=== PATIENT | male | born 1970 | race Caucasian/White ===

== ENCOUNTER → 2018-08-04 14:04 | Outpatient (CLI) | payer OTHER, SELFPAY ==
--- NOTE | 2018-08-04 14:06 | DI.RAD.S_ITS ---
PROCEDURE: XR CHEST 2V INDICATIONS: chest tightness TECHNIQUE: 2 views of the chest were acquired. COMPARISON: [facility], , CHEST 1 VIEW, 08/15/2016, 12:32. FINDINGS: Surgical changes and devices: None. Lungs and pleura: No pleural effusions or pneumothorax. Lungs are clear. Mediastinum: Mediastinal contours are normal. Heart size is normal. Bones and chest wall: No suspicious bony abnormalities. Soft tissues appear unremarkable. IMPRESSION: Normal for age. Source of current symptoms is not seen. Dictated by: Kirk Nj M.D. on 08/04/2018 at 15:02 Approved by: Kirk Nj M.D. on 08/04/2018 at 15:03
[2018-08-04 16:09] LABS: D Dimer 318 ng/mL (<230)
== END ==
PROVIDERS: Visit Provider Physician Assistant
DX: R07.89 Other chest pain (principal)
CPT/HCPCS: 36415; 71046; 85379

== ENCOUNTER → 2018-10-06 09:34 | Outpatient (CLI) | payer OTHER, SELFPAY ==
--- NOTE | 2018-10-06 11:20 | PM.TREADMILL ---
Cardiac Stress Test Report Referral & Results Date Patient Seen: 10/06/18 Requesting provider: Jeanne Panchal Indication: Chest pain Rest ECG: Unremarkable Procedure Note: Today following both written and verbal informed consent, the patient was exercised according to a standard Howard protocol. The patient exercised for a total of 10 min 19 sec achieving a maximum heart rate of 163. Patient's maximum systolic blood pressure was 145. This was an estimated 12.8 MET's. There are no ST-T segment changes Normal heart rate and blood pressure response to exercise Functional aerobic impairment rated 0 on the active scale No dysrhythmia identified Impression: No evidence of ischemia in a patient with average exercise capacity Please note: Actual ECG tracings can be found in the PACS system.
== END ==
PROVIDERS: PCP Family Medicine; Visit Provider Family Medicine
DX: R07.89 Other chest pain (principal); R06.02 Shortness of breath
CPT/HCPCS: 93016; 93017; 93018

== ENCOUNTER → 2019-10-05 09:03 | Outpatient (CLI) | payer OTHER, SELFPAY ==
[2019-10-05 10:16] LABS: Appearance Urine UA CLEAR; Bilirubin Urine UA NEGATIVE (NEGATIVE); Color Urine UA YELLOW; Glucose Urine UA NEGATIVE (Negative); Ketones Urine UA TRACE (NEGATIVE); Leukocyte Esterase Urine UA NEGATIVE (NEGATIVE); Nitrite Urine UA NEGATIVE (Negative); Occult Blood Urine UA NEGATIVE (Negative); Protein Urine UA NEGATIVE (Negative); Specific Gravity Urine UA 1.025 (1.000-1.035); Urobilinogen Urine UA 0.2 E.U./dL (0.2); pH Urine UA 5.5 (4.5-8.0)
[2019-10-05 10:29] LABS: Add Manual Diff / Slide Review NO; Basophils Absolute Auto 0 /uL (0-100); Basophils Percent Auto 0.6 % (0-2); Eosinophils Absolute Auto 400 /uL (0-450); Eosinophils Percent Auto 6.2 % (2-4); Hematocrit 46.5 % (41-53); Hemoglobin 15.8 g/dL (13.5-17.5); Hemoglobin A1C% w Est Avg Glu 5.4 % (4.0-6.0); Lymphocytes Absolute Auto 2400 /uL (1100-4500); Lymphocytes Percent Auto 41.8 % (25-40); Mean Corpuscular HGB Conc 33.9 % (30-36); Mean Corpuscular Hemoglobin 30.3 PG (26-34); Mean Corpuscular Volume 89.2 fL (80-100); Monocytes Absolute Auto 700 /uL (0-900); Monocytes Percent Auto 11.2 % (3-14); Neutrophils Absolute Auto 2400 /uL (1500-7000); Neutrophils Percent Auto 40.2 % (50-75); Platelet Count 298 X10^3/uL (150-400); Red Blood Cell Count 5.21 X10^6/uL (4.5-5.9); Red Cell Distribution Width 13.5 % (11.6-14.8); White Blood Cell Count 5.9 X10^3/uL (4.5-11.0)
[2019-10-05 10:30] LABS: Alanine Aminotransferase 22 IU/L (<50); Albumin 4.6 g/dL (3.5-5.0); Albumin Globulin Ratio 1.4 (1.0-2.8); Alkaline Phosphatase 46 U/L (38-126); Aspartate Aminotransferase 27 IU/L (17-59); BUN Creatinine Ratio 22.2 (6-22); Bilirubin Total 0.7 mg/dL (0.2-1.3); Blood Urea Nitrogen 20 mg/dL (9-20); Calcium 9.5 mg/dL (8.4-10.2); Carbon Dioxide 27 mmol/L (22-32); Chloride 105 mmol/L (98-107); Cholesterol 262 mg/dL (140-199); Estimated Glomerular Filt Rate > 60.0 mL/min (>60); Globulin 3.2 g/dL (1.7-4.1); Glucose 96 mg/dL (70-100); HDL Cholesterol 40 mg/dL (40-60); HEMOLYSIS < 15 (0-50); LDL Cholesterol Calculated 168 mg/dL (<100); Potassium 3.9 mmol/L (3.4-5.1); Sodium 140 mmol/L (137-145); Total Protein 7.8 g/dL (6.3-8.2); Triglycerides 272 mg/dL (35-150)
[2019-10-05 11:29] LABS: Thyroid Stimulating Hormone 1.03 uIU/mL (0.47-4.68)
== END ==
PROVIDERS: PCP Family Medicine; Visit Provider Family Medicine
DX: Z00.00 Encounter for general adult medical examination without abnormal findings (principal)
CPT/HCPCS: 36415; 80053; 80061; 81003; 83036; 84443; 85025

== ENCOUNTER → 2020-02-21 13:45 | Outpatient (CLI) | payer OTHER, SELFPAY ==
[2020-02-22 02:40] LABS: COVID19 Sendout Not Detected (Not Detect)
== END ==
PROVIDERS: PCP Family Medicine; Visit Provider Physician Assistant
DX: Z01.812 Encounter for preprocedural laboratory examination (principal)
CPT/HCPCS: 87635

== ENCOUNTER → 2020-07-15 14:31 | Outpatient (CLI) | payer OTHER, SELFPAY ==
[2020-07-18 07:43] LABS: COVID19 Sendout Not Detected (Not Detect)
== END ==
PROVIDERS: PCP Family Medicine; Visit Provider Physician Assistant
DX: Z11.59 Encounter for screening for other viral diseases (principal); J02.9 Acute pharyngitis, unspecified
CPT/HCPCS: 87635

== ENCOUNTER → 2020-10-10 09:30 | Outpatient (CLI) | payer OTHER, SELFPAY ==
[2020-10-10 11:06] LABS: Add Manual Diff / Slide Review NO; Basophils Absolute Auto 0 /uL (0-100); Basophils Percent Auto 0.3 % (0-2); Eosinophils Absolute Auto 200 /uL (0-450); Eosinophils Percent Auto 2.5 % (2-4); Hematocrit 43.9 % (41-53); Hemoglobin 14.6 g/dL (13.5-17.5); Lymphocytes Absolute Auto 3400 /uL (1100-4500); Lymphocytes Percent Auto 46.7 % (25-40); Mean Corpuscular HGB Conc 33.2 % (30-36); Mean Corpuscular Hemoglobin 29.8 PG (26-34); Mean Corpuscular Volume 89.7 fL (80-100); Monocytes Absolute Auto 600 /uL (0-900); Monocytes Percent Auto 8.9 % (3-14); Neutrophils Absolute Auto 3000 /uL (1500-7000); Neutrophils Percent Auto 41.6 % (50-75); Platelet Count 313 X10^3/uL (150-400); Red Blood Cell Count 4.89 X10^6/uL (4.5-5.9); Red Cell Distribution Width 13.7 % (11.6-14.8); White Blood Cell Count 7.3 X10^3/uL (4.5-11.0)
[2020-10-10 11:21] LABS: Alanine Aminotransferase 24 IU/L (<50); Albumin 4.3 g/dL (3.5-5.0); Albumin Globulin Ratio 1.4 (1.0-2.8); Alkaline Phosphatase 45 U/L (38-126); Aspartate Aminotransferase 24 IU/L (17-59); Bilirubin Total 0.3 mg/dL (0.2-1.3); Blood Urea Nitrogen 32 mg/dL (9-20); Calcium 9.2 mg/dL (8.4-10.2); Carbon Dioxide 32 mmol/L (22-32); Chloride 102 mmol/L (98-107); Cholesterol 245 mg/dL (140-199); Estimated Glomerular Filt Rate > 60.0 mL/min (>60); Glucose 91 mg/dL (70-100); HDL Cholesterol 45 mg/dL (40-60); HEMOLYSIS < 15 (0-50); LDL Cholesterol Calculated 152 mg/dL (<100); Potassium 3.8 mmol/L (3.4-5.1); Sodium 137 mmol/L (137-145); Total Protein 7.3 g/dL (6.3-8.2); Triglycerides 241 mg/dL (35-150)
[2020-10-10 11:51] LABS: Prostate Specific Antigen Scrn 0.777 ng/mL (0.1-4.0)
[2020-10-10 12:13] LABS: TSH w/ Reflex to FT4 1.21 uIU/mL (0.47-4.68)
== END ==
PROVIDERS: PCP Family Medicine; Referring Provider Family Medicine; Visit Provider Family Medicine
DX: Z00.00 Encounter for general adult medical examination without abnormal findings (principal); Z12.5 Encounter for screening for malignant neoplasm of prostate; Z13.220 Encounter for screening for lipoid disorders; Z13.228 Encounter for screening for other metabolic disorders; Z13.29 Encounter for screening for other suspected endocrine disorder
CPT/HCPCS: 36415; 80053; 80061; 84443; 85025; G0103

== ENCOUNTER → 2020-12-26 10:45 | Outpatient (CLI) | payer OTHER, SELFPAY ==
[2020-12-26 12:15] LABS: COVID19 -Nasal RAPID Negative (Negative)
== END ==
PROVIDERS: PCP Family Medicine; Referring Provider Family Medicine; Visit Provider Family Medicine
DX: Z20.822 Contact with and (suspected) exposure to COVID-19 (principal); Z01.812 Encounter for preprocedural laboratory examination
CPT/HCPCS: 87635; C9803

== ENCOUNTER → 2020-12-26 12:20 | Outpatient (CLI) | payer OTHER, SELFPAY ==
--- NOTE | 2020-12-28 10:29 | PM.PFT.1 ---
Pulmonary Function Test Referral & Results Date Patient Seen: 12/26/20 Requesting provider: Driss Wang Results: The spirometry demonstrates an FVC of 4.78 L which is 94% of predicted. The FEV1 was measured at 3.81 L which is 97% of predicted. The FEV1/FVC ratio was 80 which is 102% of predicted. Following the administration of bronchodilator there was no appreciable change to above normal numbers. Lung volumes show an SVC of 5.0 L which is 101% of predicted. The diffusing capacity was measured at 42.1 which is 130% of predicted. The maximum voluntary ventilation was normal Interpretation: This study demonstrates normal pulmonary function
== END ==
PROVIDERS: PCP Family Medicine; Referring Provider Family Medicine; Visit Provider Family Medicine
DX: J45.20 Mild intermittent asthma, uncomplicated (principal); J98.8 Other specified respiratory disorders; Z20.822 Contact with and (suspected) exposure to COVID-19
CPT/HCPCS: 87635; 94060; 94726; 94729; C9803

== ENCOUNTER → 2021-10-06 11:04 | Outpatient (CLI) | payer OTHER, SELFPAY ==
[2021-10-06 12:29] LABS: Add Manual Diff / Slide Review NO; Basophils Absolute Auto 100 /uL (0-100); Basophils Percent Auto 1.2 % (0-2); Eosinophils Absolute Auto 200 /uL (0-450); Eosinophils Percent Auto 3.9 % (2-4); Hematocrit 47.1 % (41-53); Lymphocytes Absolute Auto 1900 /uL (1100-4500); Lymphocytes Percent Auto 29.9 % (25-40); Mean Corpuscular Hemoglobin 29.4 PG (26-34); Mean Corpuscular Volume 86.5 fL (80-100); Monocytes Absolute Auto 800 /uL (0-900); Monocytes Percent Auto 12.3 % (3-14); Neutrophils Absolute Auto 3300 /uL (1500-7000); Neutrophils Percent Auto 52.7 % (50-75); Platelet Count 339 X10^3/uL (150-400); Red Blood Cell Count 5.45 X10^6/uL (4.5-5.9); White Blood Cell Count 6.3 X10^3/uL (4.5-11.0)
[2021-10-06 12:49] LABS: Alanine Aminotransferase 60 IU/L (<50); Albumin 4.5 g/dL (3.5-5.0); Albumin Globulin Ratio 1.3 (1.0-2.8); Alkaline Phosphatase 42 U/L (38-126); Aspartate Aminotransferase 39 IU/L (17-59); BUN Creatinine Ratio 20.2 (6-22); Bilirubin Total 0.6 mg/dL (0.2-1.3); Blood Urea Nitrogen 23 mg/dL (9-20); Calcium 9.8 mg/dL (8.4-10.2); Carbon Dioxide 25 mmol/L (22-32); Chloride 104 mmol/L (98-107); Estimated Glomerular Filt Rate > 60.0 mL/min (>60); Globulin 3.4 g/dL (1.7-4.1); Glucose 90 mg/dL (70-100); HEMOLYSIS < 15 (0-50); Potassium 4.7 mmol/L (3.4-5.1); Sodium 138 mmol/L (137-145); Total Protein 7.9 g/dL (6.3-8.2)
[2021-10-06 13:14] LABS: TSH w/ Reflex to FT4 0.65 uIU/mL (0.47-4.68)
[2021-10-10 17:39] LABS: Percent Free Testosterone 4.31 % (1.50-4.20); Testosterone Free 3.46 ng/dL (5.00-21.00); Testosterone Total 80.2 ng/dL (264.0-916.0)
== END ==
PROVIDERS: PCP Family Medicine; Referring Provider Family Medicine; Visit Provider Family Medicine
DX: R53.83 Other fatigue (principal)
CPT/HCPCS: 36415; 80053; 84402; 84403; 84443; 85025

== ENCOUNTER → 2021-10-27 09:04 | Outpatient (CLI) | payer OTHER, SELFPAY ==
[2021-10-27 10:28] LABS: Cholesterol 270 mg/dL (140-199); HDL Cholesterol 29 mg/dL (40-60); LDL Cholesterol Calculated 212 mg/dL (<100); Triglycerides 146 mg/dL (35-150)
[2021-10-27 11:00] LABS: Prostate Specific Antigen Scrn 0.949 ng/mL (0.1-4.0)
== END ==
PROVIDERS: PCP Family Medicine; Referring Provider Family Medicine; Visit Provider Family Medicine
DX: R79.89 Other specified abnormal findings of blood chemistry (principal); E78.2 Mixed hyperlipidemia; Z12.5 Encounter for screening for malignant neoplasm of prostate
CPT/HCPCS: 36415; 80061; 84402; 84403; G0103

== ENCOUNTER 2021-12-05 15:11 | Emergency (ER) | payer OTHER, SELFPAY ==
[2021-12-05 15:13] VITALS: PULSE 90; RESP 16; TEMP 36.9; O2SAT 99
--- NOTE | 2021-12-05 15:15 | DI.RAD.S_ITS ---
PROCEDURE: XR KNEE RT 3V INDICATIONS: knee pain, felt a pop TECHNIQUE: 3 views of the knee were acquired. COMPARISON: [facility], , KNEE 3V RIGHT, 06/28/2016, 20:11. FINDINGS: Bones: No fractures or dislocations. No suspicious bony lesions. Soft tissues: No joint effusion. No suspicious soft tissue calcifications. IMPRESSION: No acute fracture. No osseous lesion. If symptoms and/or clinical suspicion for pathology persist, further assessment with repeat, or advanced imaging (e.g., CT, MRI, or bone scan) may be helpful for further assessment. Dictated by: Shane Lopez M.D. on 12/05/2021 at 15:26 Approved by: Shane Lopez M.D. on 12/05/2021 at 15:40
[2021-12-05 15:16] VITALS: BP 140/87
--- NOTE | 2021-12-05 16:53 | ED_ITS ---
HPI - Extremity Injury (Lower) General Chief Complaint: Extremity Injury, Lower Stated Complaint: INJURY RIGHT KNEE Time Seen by Provider: 12/05/21 16:39 Source: patient Mode of arrival: Ambulatory Limitations: no limitations History of Present Illness HPI Narrative: 51-year-old male who was at work today. He states that he squatted down and felt a pop behind his kneecap. This seemed to happen 2 different times today. It is not uncomfortable for him although it is swollen currently. He is ambulatory. No prior injuries. Has not tried anything for symptoms prior to arrival. Related Data Home Medications Medication Instructions Recorded Confirmed multivitamin (Multiple Vitamins) #0 06/28/16 11/24/21 fluticasone propionate 50 2 spray NASAL DAILY 02/04/18 11/24/21 mcg/actuation nasal spray,suspension Previous Rx's Medication Instructions Recorded albuterol sulfate 90 mcg/actuation 2 inh INHALATION Q4H PRN #1 each 10/10/20 breath activated powder inhaler fexofenadine 60 mg tablet 60 mg PO Q12HP PRN #90 tab 10/10/20 fluticasone 250 mcg-salmeterol 50 1 inh INHALATION BID #60 ea 10/10/20 mcg/dose blistr powdr for inhalation (Advair Diskus) testosterone cypionate 200 mg/mL 50 mg (0.25 mL) IM QWEEK #10 ml 10/18/21 intramuscular oil (Depo-Testosterone) pravastatin 40 mg tablet 20 mg PO BEDTIME #90 tab 10/27/21 Allergies Allergy/AdvReac Type Severity Reaction Status Date / Time No Known Drug Allergies Allergy Verified 11/24/21 08:02 Review of Systems Constitutional Constitutional: Reports system reviewed and no additional complaints, except as documented Musculoskeletal Musculoskeletal: Reports system reviewed and no additional complaints, except as documented and Reports as per HPI Integumentary/Breasts Skin/Breast: Reports system reviewed and no additional complaints, except as documented and Reports as per HPI Neurologic Neurologic: Reports system reviewed and no additional complaints, except as documented Hematologic/Lymphatic On Anticoagulants: No Patient History Medical History Asthma Encounter for well adult exam without abnormal findings Fatigue Hyperlipidemia Low testosterone in male Seasonal allergic rhinitis Sleep apnea Well adult exam Social History (Reviewed 12/05/21 @ 20:25 by PRIYA Pulliam Smoking Status: Never smoker alcohol intake: current (4 drinks per week ) substance use type: does not use Smoking Status: Never smoker Exam Initial Vital Signs Initial Vital Signs: Vital Signs Temperature 98.5 F 12/05/21 15:13 Pulse Rate 90 12/05/21 15:13 Respiratory Rate 16 12/05/21 15:13 Pulse Oximetry 99 12/05/21 15:13 HENMT Head: normal to inspection and normocephalic Skin General: no rashes or lesions noted Neuro Sensory Exam: no sensory deficits noted Extrem Other: Patient does have an effusion in the prepatellar suprapatellar region. There is no skin changes over the area concerning for infection. His quadriceps tendon and patellar tendon appear to be intact. He is able to flex his quad muscle and able to do a straight leg raise. Does not have any tenderness over his hamstring tendons. No tenderness along the mediolateral joint line. No tenderness along the fibular head. Psych Appearance: grossly normal Course Orders Ordered: ED Orders 12/05/21 15:15 XR knee RT 3V Stat Vital Signs Vital signs: Vital Signs - 8 hr 12/05/21 15:13 12/05/21 15:16 Temperature 98.5 F Pulse Rate 90 Respiratory Rate 16 Blood Pressure 140/87 Pulse Oximetry 99 MDM - Extremity Injury (Lower) Imaging Data Extremity x-ray #1: Radiologist's Impression: [place] [address] XRay Report Signed Patient: Daniel Hung MR#: [id number] : 1970 Acct:[id number] Age/Sex: 51 / M Date of Service: 12/05/21 Loc: ED Accession Number: [id number] ?? Procedure: XR knee RT 3V Ordering Provider: Alejandro Herrera D.O. PROCEDURE:? XR KNEE RT 3V ? INDICATIONS:? knee pain, felt a pop ? TECHNIQUE:? 3 views of the knee were acquired.? ? COMPARISON:? [facility] , KNEE 3V RIGHT, 06/28/2016, 20:11. ? FINDINGS:? ? Bones:? No fractures or dislocations.? No suspicious bony lesions.? ? Soft tissues:? No joint effusion.? No suspicious soft tissue calcifications.? ? ? IMPRESSION:? No acute fracture. No osseous lesion. If symptoms and/or clinical suspicion for pathology persist, further assessment with repeat, or advanced imaging (e.g., CT, MRI, or bone scan) may be helpful for further assessment. ? ? Dictated by: Shane Lopez M.D. on 12/05/2021 at 15:26 ? ? Approved by: Shane Lopez M.D. on 12/05/2021 at 15:40? MDM Narrative Medical decision making narrative: Does have an effusion in the prepatellar suprapatellar region however there is no signs of any infection. X-ray shows no fracture. His presentation and location of his symptoms would be concerning for a quadriceps tendon rupture patella tendon rupture however he is able to flex his quadriceps without any discomfort in a is able to do a straight leg raise. No fractures on the x-rays. I do think that the patient is going to require an evaluation most likely by Orthopedics once the initial swelling resolves. He was given return precautions. He expressed understanding and agreement. Discharge Plan Departure Patient Disposition: Home Clinical Impression: Effusion of knee joint right Instructions: How To Perform RICE (Rest, Ice, Compress, Elevate), DI for Knee Effusion Activity Restrictions/Additional Instructions: I do recommend that you keep your knee elevated in place ice over the areas much as possible. You can take Tylenol/ibuprofen for any discomfort. I suspect that you will need follow-up with orthopedic surgery at some point in the future. Return to the emergency department for any new or worsening symptoms. Prescriptions: No Action fluticasone propionate 50 mcg/actuation spray,suspension 2 spray NASAL DAILY 0RF multivitamin [Multiple Vitamins] 1 EACH tablet Qty: 0 0RF pravastatin 40 mg tablet 20 mg PO BEDTIME Qty: 90 3RF albuterol sulfate 90 mcg/actuation aerosol powdr breath activated 2 inh INHALATION Q4H PRN (Reason: shortness of breath or wheezing) Qty: 1 2RF Rx Instructions: administer with spacer fexofenadine 60 mg tablet 60 mg PO Q12HP PRN (Reason: Seasonal allergies) Qty: 90 1RF fluticasone propion-salmeterol [Advair Diskus] 250-50 mcg/dose blister with device 1 inh inhalation BID Qty: 60 2RF testosterone cypionate [Depo-Testosterone] 200 mg/mL oil 50 mg IM QWEEK Qty: 10 1RF Referrals: Driss Wang, [Primary Care Provider] - Stand Alone Forms: Work Release Note
== END 2021-12-05 17:04 | disposition home or self-care (01) ==
PROVIDERS: Emergency Provider Emergency Medicine; PCP Family Medicine
DX: M25.461 Effusion, right knee (principal)
CPT/HCPCS: 73562; 99281; 99283

== ENCOUNTER → 2022-03-22 15:53 | Outpatient (CLI) | payer OTHER, SELFPAY ==
[2022-03-22 16:40] LABS: COVID19 -Nasal RAPID Negative (Negative)
== END ==
PROVIDERS: PCP Family Medicine; Visit Provider Surgery
DX: Z01.812 Encounter for preprocedural laboratory examination (principal); Z20.822 Contact with and (suspected) exposure to COVID-19
CPT/HCPCS: 87635; C9803

== ENCOUNTER 2022-03-23 09:45 | Day surgery (SDC) | payer OTHER, SELFPAY ==
[2022-03-23 09:54] VITALS: BP 118/80; PULSE 77; RESP 15; TEMP 36.3; O2SAT 99; BMI 31.5
[2022-03-23] MEDS: LACTATED RINGERS 1,000 ML 42 ML IV (10:04)
--- NOTE | 2022-03-23 10:47 | PM.HP.1 ---
History of Present Illness History of Present Illness Date Patient Seen: 03/23/22 Time Patient Seen: 10:47 Chief complaint: SCREENING COLONOSCOPY Narrative: first colonoscopy for colon cancer screening, no family history or symptoms. Patient History Medical History Asthma Encounter for well adult exam without abnormal findings Fatigue Hyperlipidemia Low testosterone in male Seasonal allergic rhinitis Sleep apnea Well adult exam Family & Social History Social History: household members spouse Tobacco & Substance use: Smoking Status Never smoker alcohol intake current alcohol intake frequency a few times a week Substance Use Type does not use Meds Home Medications and Allergies Home Medications Medication Instructions Recorded Confirmed Type multivitamin (Multiple Vitamins ##0 06/28/16 11/24/21 History tablet) fluticasone propionate 50 2 spray intranasal DAILY 02/04/18 11/24/21 History mcg/actuation nasal spray,suspension fexofenadine 60 mg tablet 60 mg PO Q12HP PRN Seasonal 10/10/20 03/23/22 Rx allergies #90 tabs albuterol sulfate 90 mcg/actuation 2 inh inhalation Q4H PRN shortness 01/12/22 03/23/22 Rx breath activated powder inhaler of breath or wheezing #1 ea fluticasone 250 mcg-salmeterol 50 1 inh inhalation BID #60 ea 01/12/22 03/23/22 Rx mcg/dose blistr powdr for inhalation (Advair Diskus) pravastatin 40 mg tablet 40 mg PO BEDTIME #90 tabs 01/12/22 03/23/22 Rx testosterone cypionate 200 mg/mL 100 mg (0.5 mL) IM QWEEK #10 mL 02/21/22 Rx intramuscular oil (Depo-Testosterone) sodium,potassium,mag sulfates 17.5 See Rx Instructions PO .COMPLEX 03/08/22 Rx gram-3.13 gram-1.6 gram oral soln #354 mL (Suprep Bowel Prep Kit) Allergies Allergy/AdvReac Type Severity Reaction Status Date / Time No Known Drug Allergies Allergy Verified 03/23/22 10:02 Review of Systems Review of Systems ROS: Yes All systems reviewed with the patient and are negative except as otherwise documented Exam Vital Signs (past 8 hours): - 03/23/22 09:54 Temperature 97.4 F L Pulse Rate 77 Respiratory Rate 15 Blood Pressure 118/80 Pulse Oximetry 99 Oxygen Delivery Method Room Air Oxygen Delivery Method Room Air Const General: cooperative and healthy appearing Nutritional Appearance: average body habitus HENMT Head: normal to inspection Face and sinus: normal facial exam Eyes Sclera: sclerae normal Neck Neck: trachea midline Chest Chest: normal inspection of the chest Resp Effort & Inspection: normal respiratory effort and able to speak in complete sentences Cardio Rate: regular rate Rhythm: regular rhythm GI Inspection: normal to inspection Palpation: soft Skin General: no rashes or lesions noted Neuro General: patient alert and patient oriented x3 Cognition: normal cognition Speech: speech normal Extrem General: full ROM Psych Appearance: grossly normal Judgment: judgment good Assessment & Plan Assessment & Plan narrative: colon cancer screening with colonoscopy and moderate sedation COVID-19 COVID-19 status: Negative Time Spent With Patient Time with patient: less than 30 minutes Critical Care time: I spent a total of [] minutes of critical care time on this patient's care today; this time is exclusive of procedural time.
[2022-03-23] MEDS: fentaNYL 250 MCG/5 ML INJ 100 MCG IV (11:06)
[2022-03-23] MEDS: MIDAZOLAM 5 MG/5 ML VIAL 4 MG IV (11:07)
--- NOTE | 2022-03-23 11:10 | PM.OP.COLON ---
Operative Date/Time/Diagnoses Date of procedure: 03/23/22 Time of procedure: 11:10 Pre-op diagnosis: Colon cancer screening Post-op diagnosis: same Procedure & Clinicians Study performed: Colonoscopy with moderate sedation Same procedure as scheduled: Yes Indications: Colon cancer screening Surgeon: Elke Mejia Procedure Notes SCOAP/Timeout: Done Procedure in detail: Preop diagnosis: Colon cancer screening Postop diagnosis: Same Operative procedure: Colonoscopy with moderate sedation Surgeon: Linsey Mejia MD Findings: Normal colon. No polyps, no diverticulosis Procedure: Patient placed in lateral position. Rectal exam performed showing normal tone no masses. Colonoscope was inserted into the rectum and advanced to ileocecal valve with minimal difficulty. Insufflation extraction of the scope and the above findings. Impression: Normal colonoscopy. Plan: Repeat it colonoscopy for screening purposes in 10 years unless otherwise indicated by change in family history or clinical condition Sedation minutes: 12 Specimen(s): none sent Complications: none Post-procedure Recommendations: Colonoscopy in 10 years Follow up: as needed Disposition: PACU
[2022-03-23 11:15] VITALS: BP 117/83; PULSE 74; RESP 12; TEMP 36.3; O2SAT 93
--- NOTE | 2022-03-23 11:16 | SUR.PHASEI ---
Denied pain, was offered fluids, but he preferred to sleep more.
[2022-03-23 11:19] VITALS: BP 101/72; PULSE 76; RESP 12; O2SAT 93
[2022-03-23 11:24] VITALS: BP 96/69; PULSE 72; RESP 11; O2SAT 92
[2022-03-23 11:30] VITALS: BP 112/72; PULSE 93; RESP 18; TEMP 36.7; O2SAT 98
[2022-03-23 11:34] VITALS: BP 108/65; PULSE 85; RESP 17; TEMP 36.4; O2SAT 96
== END 2022-03-23 11:46 | disposition home or self-care (01) ==
PROVIDERS: PCP Family Medicine; Referring Provider Surgery; Visit Provider Surgery
PROC: 0DJD8ZZ Inspection of Lower Intestinal Tract, Via Natural or Artificial Opening Endoscopic (ICD-10-PCS; CPT 45378; principal; 2022-03-23 10:45)
DX: Z12.11 Encounter for screening for malignant neoplasm of colon (principal); J45.909 Unspecified asthma, uncomplicated; E78.5 Hyperlipidemia, unspecified; G47.30 Sleep apnea, unspecified
CPT/HCPCS: G0121; 99152; J2250; J3010

== ENCOUNTER → 2022-07-16 17:34 | Outpatient (CLI) | payer OTHER, SELFPAY ==
[2022-07-16 18:30] LABS: Add Manual Diff / Slide Review NO; Basophils Absolute Auto 100 /uL (0-100); Basophils Percent Auto 0.5 % (0-2); Eosinophils Absolute Auto 300 /uL (0-450); Hematocrit 47.3 % (41-53); Hemoglobin 16.2 g/dL (13.5-17.5); Lymphocytes Absolute Auto 3200 /uL (1100-4500); Lymphocytes Percent Auto 30.9 % (25-40); Mean Corpuscular HGB Conc 34.1 % (30-36); Mean Corpuscular Hemoglobin 30.4 PG (26-34); Mean Corpuscular Volume 89.1 fL (80-100); Monocytes Absolute Auto 1000 /uL (0-900); Monocytes Percent Auto 9.4 % (3-14); Neutrophils Absolute Auto 5800 /uL (1500-7000); Neutrophils Percent Auto 56.2 % (50-75); Platelet Count 307 X10^3/uL (150-400); Red Blood Cell Count 5.31 X10^6/uL (4.5-5.9); Red Cell Distribution Width 13.8 % (11.6-14.8); White Blood Cell Count 10.4 X10^3/uL (4.5-11.0)
[2022-07-16 18:45] LABS: Alanine Aminotransferase 89 IU/L (<50); Albumin 4.5 g/dL (3.5-5.0); Albumin Globulin Ratio 1.3 (1.0-2.8); Alkaline Phosphatase 61 U/L (38-126); Aspartate Aminotransferase 53 IU/L (17-59); BUN Creatinine Ratio 25.8 (6-22); Bilirubin Total 0.4 mg/dL (0.2-1.3); Blood Urea Nitrogen 24 mg/dL (9-20); Carbon Dioxide 26 mmol/L (22-32); Chloride 102 mmol/L (98-107); Cholesterol 173 mg/dL (140-199); Estimated Glomerular Filt Rate > 60 mL/min (>60); Globulin 3.4 g/dL (1.7-4.1); Glucose 64 mg/dL (70-100); HDL Cholesterol 16 mg/dL (40-60); HEMOLYSIS 28 (0-50); LDL Cholesterol Calculated 95 mg/dL (<100); Potassium 4.2 mmol/L (3.4-5.1); Sodium 139 mmol/L (137-145); Total Protein 7.9 g/dL (6.3-8.2); Triglycerides 309 mg/dL (35-150)
[2022-07-16 19:08] LABS: Prostate Specific Antigen 1.18 ng/mL (0.10-4.00)
[2022-07-16 21:52] LABS: Calcium 9.2 mg/dL (8.4-10.2)
[2022-07-21 14:39] LABS: Percent Free Testosterone 4.08 % (1.50-4.20); Testosterone Free 15.86 ng/dL (5.00-21.00); Testosterone Total 388.8 ng/dL (264.0-916.0)
== END ==
PROVIDERS: PCP Family Medicine; Referring Provider Family Medicine; Visit Provider Family Medicine
DX: Z00.00 Encounter for general adult medical examination without abnormal findings (principal); R79.89 Other specified abnormal findings of blood chemistry
CPT/HCPCS: 36415; 80053; 80061; 84153; 84402; 84403; 85025

== ENCOUNTER → 2022-08-17 07:45 | Outpatient (CLI) | payer OTHER, SELFPAY ==
[2022-08-17 08:30] LABS: Add Manual Diff / Slide Review NO; Basophils Absolute Auto 0 /uL (0-100); Basophils Percent Auto 0.5 % (0-2); Eosinophils Absolute Auto 400 /uL (0-450); Eosinophils Percent Auto 6.8 % (2-4); Hematocrit 48.3 % (41-53); Hemoglobin 16.4 g/dL (13.5-17.5); Lymphocytes Absolute Auto 1800 /uL (1100-4500); Lymphocytes Percent Auto 28.6 % (25-40); Mean Corpuscular HGB Conc 33.9 % (30-36); Mean Corpuscular Hemoglobin 29.8 PG (26-34); Mean Corpuscular Volume 87.9 fL (80-100); Monocytes Absolute Auto 700 /uL (0-900); Monocytes Percent Auto 11.3 % (3-14); Neutrophils Absolute Auto 3400 /uL (1500-7000); Neutrophils Percent Auto 52.8 % (50-75); Platelet Count 269 X10^3/uL (150-400); Red Cell Distribution Width 13.4 % (11.6-14.8); White Blood Cell Count 6.4 X10^3/uL (4.5-11.0)
[2022-08-17 08:51] LABS: Alanine Aminotransferase 73 IU/L (<50); Albumin 4.1 g/dL (3.5-5.0); Albumin Globulin Ratio 1.5 (1.0-2.8); Alkaline Phosphatase 59 U/L (38-126); Aspartate Aminotransferase 42 IU/L (17-59); BUN Creatinine Ratio 16.2 (6-22); Bilirubin Total 0.6 mg/dL (0.2-1.3); Blood Urea Nitrogen 16 mg/dL (9-20); Calcium 8.7 mg/dL (8.4-10.2); Carbon Dioxide 28 mmol/L (22-32); Chloride 101 mmol/L (98-107); Cholesterol 198 mg/dL (140-199); Estimated Glomerular Filt Rate > 60 mL/min (>60); Globulin 2.7 g/dL (1.7-4.1); Glucose 93 mg/dL (70-100); HDL Cholesterol 30 mg/dL (40-60); HEMOLYSIS < 15 (0-50); LDL Cholesterol Calculated 120 mg/dL (<100); Potassium 4.3 mmol/L (3.4-5.1); Sodium 135 mmol/L (137-145); Total Protein 6.8 g/dL (6.3-8.2); Triglycerides 242 mg/dL (35-150)
== END ==
PROVIDERS: PCP Family Medicine; Referring Provider Family Medicine; Visit Provider Family Medicine
DX: E78.2 Mixed hyperlipidemia (principal); R89.9 Unspecified abnormal finding in specimens from other organs, systems and tissues
CPT/HCPCS: 36415; 80053; 80061; 85025

== ENCOUNTER → 2023-03-29 09:17 | Outpatient (CLI) | payer OTHER, SELFPAY ==
[2023-03-29 10:28] LABS: Add Manual Diff / Slide Review NO; Basophils Absolute Auto 0 /uL (0-100); Basophils Percent Auto 0.3 % (0-2); Eosinophils Absolute Auto 300 /uL (0-450); Eosinophils Percent Auto 3.1 % (2-4); Hematocrit 50.7 % (41-53); Hemoglobin 17.3 g/dL (13.5-17.5); Lymphocytes Absolute Auto 1800 /uL (1100-4500); Lymphocytes Percent Auto 19.3 % (25-40); Mean Corpuscular Volume 88.1 fL (80-100); Monocytes Absolute Auto 900 /uL (0-900); Monocytes Percent Auto 9.8 % (3-14); Neutrophils Absolute Auto 6200 /uL (1500-7000); Neutrophils Percent Auto 67.5 % (50-75); Platelet Count 285 X10^3/uL (150-400); Red Blood Cell Count 5.76 X10^6/uL (4.5-5.9); Red Cell Distribution Width 14.1 % (11.6-14.8); White Blood Cell Count 9.2 X10^3/uL (4.5-11.0)
[2023-03-29 10:52] LABS: Alanine Aminotransferase 34 IU/L (<50); Albumin 4.4 g/dL (3.5-5.0); Albumin Globulin Ratio 1.5 (1.0-2.8); Alkaline Phosphatase 61 U/L (38-126); Aspartate Aminotransferase 34 IU/L (17-59); BUN Creatinine Ratio 21.4 (6-22); Bilirubin Total 0.6 mg/dL (0.2-1.3); Blood Urea Nitrogen 21 mg/dL (9-20); Calcium 9.3 mg/dL (8.4-10.2); Carbon Dioxide 27 mmol/L (22-32); Chloride 100 mmol/L (98-107); Cholesterol 148 mg/dL (140-199); Estimated Glomerular Filt Rate > 60 mL/min (>60); Glucose 87 mg/dL (70-100); HDL Cholesterol 34 mg/dL (40-60); HEMOLYSIS < 15 (0-50); LDL Cholesterol Calculated 88 mg/dL (<100); Potassium 4.5 mmol/L (3.4-5.1); Sodium 136 mmol/L (137-145); Total Protein 7.4 g/dL (6.3-8.2); Triglycerides 129 mg/dL (35-150)
[2023-03-29 11:12] LABS: TSH w/ Reflex to FT4 0.58 uIU/mL (0.47-4.68)
[2023-03-29 11:16] LABS: Prostate Specific Antigen 1.69 ng/mL (0.10-4.00)
[2023-04-04 09:23] LABS: Percent Free Testosterone 3.88 % (1.50-4.20); Testosterone Free 24.77 ng/dL (5.00-21.00); Testosterone Total 638.3 ng/dL (264.0-916.0)
== END ==
PROVIDERS: PCP Family Medicine; Referring Provider Family Medicine; Visit Provider Family Medicine
DX: R53.83 Other fatigue (principal); R79.89 Other specified abnormal findings of blood chemistry; Z00.00 Encounter for general adult medical examination without abnormal findings; E78.5 Hyperlipidemia, unspecified
CPT/HCPCS: 36415; 80053; 80061; 84153; 84402; 84403; 84443; 85025

== ENCOUNTER → 2023-07-17 11:45 | Outpatient (CLI) | payer OTHER, SELFPAY ==
--- NOTE | 2023-07-17 11:46 | DI.CT.S_ITS ---
PROCEDURE: CT SINUS SCREEN WO CON INDICATIONS: eval nasal polyps TECHNIQUE: Noncontrast 3.0 mm axial images acquired from the frontal sinuses to the mid-sella, with coronal and sagittal reformats. For radiation dose reduction, the following was used: automated exposure control, adjustment of mA and/or kV according to patient size. COMPARISON: None. FINDINGS: Image quality: Excellent. Maxillary Sinuses: Mild hyperostosis of the rosa.. Moderate mucosal thickening. Ethmoid Air Cells: No bony remodeling or destruction. Opacification the majority of the ethmoid air cells.. Sphenoid Sinuses: No bony remodeling or destruction. Mucosal thickening with air-fluid levels and layering frothy secretions.. Frontal Sinuses: No bony remodeling or destruction. Small frothy secretions within the inferior left greater than right frontal sinuses.. Ostiomeatal Complexes: Ostiomeatal complexes are patent and enlarged which may be due to postsurgical changes or chronic sinusitis. Bilateral Ace cells. Miscellaneous: Visualized intra-orbital contents are normal. Bilateral maggie bullosa . No paradoxical turbinate curvature. Mild leftward nasal septal deviation. Periapical lucencies around several maxillary teeth are partially visualized. IMPRESSION: 1. Diffuse paranasal sinus disease as described above with chronic sinusitis with frothy secretions, likely representing acute on chronic disease. 2. Enlargement of the [id number]-left ostiomeatal complexes, correlate for postsurgical changes versus enlargement from chronic sinusitis. 3. No significant nasal polyps are seen. Dictated by: Jaime Ambrosio M.D. on 07/17/2023 at 13:32 Approved by: Jaime Ambrosio M.D. on 07/17/2023 at 13:39
== END ==
PROVIDERS: PCP Family Medicine; Referring Provider Family Medicine; Visit Provider Family Medicine
DX: J32.8 Other chronic sinusitis (principal); J33.9 Nasal polyp, unspecified
CPT/HCPCS: 70486

== ENCOUNTER → 2023-10-11 09:09 | Outpatient (CLI) | payer OTHER, SELFPAY ==
[2023-10-11 10:14] LABS: Alanine Aminotransferase 41 IU/L (<50); Albumin 4.4 g/dL (3.5-5.0); Albumin Globulin Ratio 1.5 (1.0-2.8); Alkaline Phosphatase 42 U/L (38-126); Aspartate Aminotransferase 42 IU/L (17-59); BUN Creatinine Ratio 24.1 (6-22); Bilirubin Total 0.8 mg/dL (0.2-1.3); Blood Urea Nitrogen 26 mg/dL (9-20); Calcium 9.7 mg/dL (8.4-10.2); Carbon Dioxide 28 mmol/L (22-32); Chloride 99 mmol/L (98-107); Estimated Glomerular Filt Rate > 60 mL/min (>60); Glucose 78 mg/dL (70-100); HEMOLYSIS 26 (0-50); Potassium 4.8 mmol/L (3.4-5.1); Sodium 136 mmol/L (137-145); Total Protein 7.4 g/dL (6.3-8.2)
[2023-10-18 18:41] LABS: Percent Free Testosterone 3.41 % (1.50-4.20); Testosterone Free 41.74 ng/dL (5.00-21.00)
== END ==
PROVIDERS: PCP Family Medicine; Referring Provider Family Medicine; Visit Provider Family Medicine
DX: R79.89 Other specified abnormal findings of blood chemistry (principal); E78.5 Hyperlipidemia, unspecified
CPT/HCPCS: 36415; 80053; 84402; 84403

== ENCOUNTER → 2024-03-27 09:18 | Outpatient (CLI) | payer OTHER, SELFPAY ==
[2024-03-27 09:43] LABS: Add Manual Diff / Slide Review NO; Basophils Absolute Auto 100 /uL (0-100); Basophils Percent Auto 0.9 % (0-2); Eosinophils Absolute Auto 300 /uL (0-450); Eosinophils Percent Auto 5.5 % (2-4); Hematocrit 51.7 % (41-53); Hemoglobin 17.6 g/dL (13.5-17.5); Lymphocytes Absolute Auto 1700 /uL (1100-4500); Lymphocytes Percent Auto 26.6 % (25-40); Mean Corpuscular HGB Conc 34.1 % (30-36); Mean Corpuscular Hemoglobin 30.9 PG (26-34); Mean Corpuscular Volume 90.5 fL (80-100); Monocytes Absolute Auto 700 /uL (0-900); Monocytes Percent Auto 10.3 % (3-14); Neutrophils Absolute Auto 3600 /uL (1500-7000); Neutrophils Percent Auto 56.7 % (50-75); Platelet Count 340 X10^3/uL (150-400); Red Blood Cell Count 5.71 X10^6/uL (4.5-5.9); Red Cell Distribution Width 13.3 % (11.6-14.8); White Blood Cell Count 6.3 X10^3/uL (4.5-11.0)
[2024-03-27 10:39] LABS: HEMOLYSIS < 15 (0-50)
[2024-03-27 10:55] LABS: Alanine Aminotransferase 42 IU/L (<50); Albumin 4.8 g/dL (3.5-5.0); Albumin Globulin Ratio 1.7 (1.0-2.8); Alkaline Phosphatase 53 U/L (38-126); Aspartate Aminotransferase 34 IU/L (17-59); BUN Creatinine Ratio 18.3 (6-22); Bilirubin Total 0.7 mg/dL (0.2-1.3); Blood Urea Nitrogen 20 mg/dL (9-20); Calcium 9.9 mg/dL (8.4-10.2); Carbon Dioxide 28 mmol/L (22-32); Chloride 103 mmol/L (98-107); Estimated Glomerular Filt Rate > 60 mL/min (>60); Globulin 2.9 g/dL (1.7-4.1); Glucose 99 mg/dL (70-100); Potassium 5.2 mmol/L (3.4-5.1); Sodium 138 mmol/L (137-145); Total Protein 7.7 g/dL (6.3-8.2)
== END ==
PROVIDERS: PCP Family Medicine; Referring Provider Family Medicine; Visit Provider Family Medicine
DX: F98.8 Other specified behavioral and emotional disorders with onset usually occurring in childhood and adolescence (principal); R53.83 Other fatigue; R79.89 Other specified abnormal findings of blood chemistry; Z00.00 Encounter for general adult medical examination without abnormal findings; E78.5 Hyperlipidemia, unspecified
CPT/HCPCS: 36415; 80053; 84153; 84402; 84403; 85025

== ENCOUNTER 2025-07-24 10:37 | Emergency (ER) | payer OTHER, SELFPAY ==
[2025-07-24 10:48] VITALS: BP 130/76; PULSE 98; RESP 18; TEMP 36.8; O2SAT 98; BMI 30.1
--- NOTE | 2025-07-24 10:58 | PC.NURSE ---
patient able to ambulate to room and transfer self into bed, pt moving slowly into bed reporting numbness and tingling in left hand and severe pain in left hip
[2025-07-24] MEDS: KETOROLAC 30 MG/ML VIAL IM (11:17)
--- NOTE | 2025-07-24 11:29 | PC.NURSE ---
patient reports having pain like a stabbing knife in left lower back and hip accompanied by numbness and tingling in left hand pt historically had issues with lumbar spine 15 years ago and was recommended to have spinal fusion 15 years ago but declined. no loss of bowel or bladder function. pt was in a upright twisting position turning to right when this happened. no issues or pain to right side of body
--- NOTE | 2025-07-24 11:48 | PC.NURSE ---
patient still in intractable pain, provider made aware and rn asks provider to assess pt. no new orders.
--- NOTE | 2025-07-24 12:17 | ED_ITS ---
HPI - Back Pain/Injury General Chief Complaint: Back Pain/Injury Stated Complaint: Lower back pain/can't sit up or walk Time Seen by Provider: 07/24/25 11:08 History of Present Illness HPI Narrative: This is a 55-year-old male who is healthy at baseline presenting with back pain. He has had low back pain radiating into his left buttock for 5 days. Started when he had ?twisted wrong? at work. Prior to this he had driven down to [place] and back. He notes a remote history of having back pain when he was in the , back surgery was offered at that time which he declined. He is not having fevers he does not use injection drugs, he does not have immunosuppression. He does not have problems with bowel or bladder function he is not having saddle anesthesia he is not having weakness in his right leg, he notes numbness in his long and ring fingers in his left hand which started prior to the back pain. He had some oxycodone left from a previous prescription at home took 10 mg without relief. He has a establish primary care. I reviewed primary care note from April of this year shows the patient is essentially healthy with elevated cholesterol and on a testosterone supplement. Related Data Home Medications ?Medication ?Instructions ?Recorded ?Confirmed multivitamin (Multiple Vitamins ##0 06/28/16 04/29/25 tablet) fluticasone propionate 50 2 spray intranasal DAILY 04/29/25 mcg/actuation nasal spray,suspension Previous Rx's ?Medication ?Instructions ?Recorded fexofenadine 60 mg tablet 60 mg PO Q12HP PRN Seasonal 10/10/20 allergies #90 tabs sildenafil 100 mg tablet (Viagra) 100 mg PO DAILY PRN sexual 06/25/23 activity #30 tabs albuterol sulfate 90 mcg/actuation 2 inh inhalation Q4 H PRN shortness 07/01/24 breath activated powder inhaler of breath or wheezing #1 ea pravastatin 40 mg tablet 40 mg PO ONCE PM #30 tabs fluticasone 250 mcg-salmeterol 50 1 inh inhalation BID #60 ea 04/29/25 mcg/dose blistr powdr for inhalation (Advair Diskus) testosterone cypionate 200 mg/mL 100 mg (0.5 mL) IM QW TABLE MOUNTAIN #10 mL 07/02/25 intramuscular oil dextroamphetamine-amphetamine ER 20 mg PO DAILY #30 ca ps 07/10/25 20 mg 24hr capsule,extend release (Adderall XR) methylprednisolone 4 mg tablets in See Rx Instructions PO .COMPLEX 07/24/25 a dose pack (Medrol (Tejas)) #21 ea oxycodone 5 mg tablet 5 mg PO Q6H PRN pain #20 tab s 07/24/25 Allergies Allergy/AdvReac Type Severity Reaction Status Date / Time No Known Drug Allergies Allergy Verified 07/24/25 10:53 Patient History Medical History History of bucket handle tear of medial meniscus Right knee pain Testicular hypofunction Skin lesions Nasal polyps ADD (attention deficit disorder) Encounter for well adult exam without abnormal findings Low testosterone in male Sleep apnea Fatigue Seasonal allergic rhinitis Asthma Hyperlipidemia Well adult exam Social History household members: spouse Smoking Status: Never smoker alcohol intake: current substance use type: does not use Smoking Status: Never smoker alcohol intake frequency: a few times a week Exam Narrative Exam Narrative: Patient is alert vital signs are reviewed. Normocephalic and atraumatic Abdomen is soft nontender without pulsatile mass Motor and sensation in the lower extremities are intact. Reflexes in the knees are trace and symmetric. Initial Vital Signs Initial Vital Signs: Vital Signs Temperature 98.3 F 07/24/25 10:48 Pulse Rate 98 H 07/24/25 10:48 Respiratory Rate 18 07/24/25 10:48 Blood Pressure 130/76 07/24/25 10:48 Pulse Oximetry 98 07/24/25 10:48 Oxygen Delivery Method Room Air 07/24/25 10:48 Course Orders Ordered: ED Orders 07/24/25 13:10 CBC Auto Diff [Complete Blood Count AUTO DIFF] Stat CRP [C-Reactive Protein Quant] Stat ESR [Erythrocyte Sedimentation Rate] Stat Discontinued Medications Acetaminophen (Ofirmev) 1,000 mg in 100 mls @ 400 mls/hr IV NOW ONE Stop: 07/24/25 12:30 Last Infusion: 07/24/25 13:03 Dose: Infused Documented By: Admin: 07/24/25 12:22 Dose: 400 mls/hr Documented By: SBF Ketorolac Tromethamine (Ketorolac 30 Mg/Ml Vial) 30 mg IM NOW ONE Stop: 07/24/25 11:09 Last Admin: 07/24/25 11:17 Dose: 30 mg Documented By: SBF Ondansetron HCl (Ondansetron 4 Mg/2 Ml Inj) 4 mg IV NOW ONE Stop: 07/24/25 12:43 Last Admin: 07/24/25 12:46 Dose: 4 mg Documented By: SGF Oxycodone HCl (Oxycodone Ir 5 Mg Tablet) 10 mg PO NOW ONE Stop: 07/24/25 12:17 Last Admin: 07/24/25 12:22 Dose: 10 mg Documented By: SBF Prednisone (Prednisone 20 Mg Tablet) 60 mg PO NOW ONE Stop: 07/24/25 12:17 Last Admin: 07/24/25 12:21 Dose: 60 mg Documented By: SBF Reevaluation(s) Reevaluation #1: Still having significant pain but feeling better and appears more comfortable. Discussed recommendations for home care and follow up. Discussed indications for return to the emergency department Vital Signs Vital signs: Vital Signs - 8 hr 07/24/25 10:48 07/24/25 13:14 07/24/25 13:15 Temperature 98.3 F Pulse Rate 98 H 79 81 Respiratory Rate 18 20 Blood Pressure 130/76 134/83 Pulse Oximetry 98 95 95 Oxygen Delivery Method Room Air Room Air 07/24/25 13:30 Temperature Pulse Rate 80 Respiratory Rate Blood Pressure Pulse Oximetry 95 Oxygen Delivery Method MDM - Back Pain/Injury Lab Data Lab results narrative: CBC with diff CMP and sed rate all at normal 07/24/25 13:10 Labs: Lab Results 07/24/25 Range/Units 13:10 WBC 8.6 (4.5-11.0) X10^3/uL RBC 4.98 (4.5-5.9) X10^6/uL Hgb 15.0 (13.5-17.5) g/dL Hct 44.5 (41-53) % MCV 89.4 (80-100) fL MCH 30.2 (26-34) PG MCHC 33.8 (30-36) % RDW 13.6 (11.6-14.8) % Plt Count 247 (150-400) X10^3/uL Neut % (Auto) 60.8 (50-75) % Lymph % (Auto) 23.0 L (25-40) % [place] % (Auto) 10.9 (3-14) % Eos % (Auto) 4.3 H (2-4) % Baso % (Auto) 1.0 (0-2) % Neut # (Auto) 5200 (1927-3285) /uL Lymph # (Auto) 2000 (0569-7935) /uL [place] # (Auto) 900 (0-900) /uL Eos # (Auto) 400 (0-450) /uL Baso # (Auto) 100 (0-100) /uL ESR 5 (0-15) MM/HR C-Reactive Protein < 0.5 (<1.0) mg/dL MDM Narrative Medical decision making narrative: 55-year-old male with atraumatic back pain. No red flag features. Having significant pain but neurologically intact. Labs are reassuring. Started a steroid taper with a prescription for a few oxycodone discussed [id number] analgesia Discharge Plan Departure Patient Disposition: Home Clinical Impression: Back pain Qualifiers: Back pain location: low back pain Chronicity: acute Back pain laterality: b ilateral Sciatica presence: with sciatica Sciatica laterality: sciatica of left side Qualified Code(s): M54.42 - Lumbago with sciatica, left side Instructions: DI for Back Pain With Sciatica Activity Restrictions/Additional Instructions: Emergency department evaluation today is reassuring. I know that you have significant back pain, I do not think that there is any dangerous problem occurring at present and I have recommendations regarding symptom management. I started a tapering steroid dose, your next dose of this will be tomorrow. Take it as directed. While you are taking this, do not use ibuprofen, on the last 2 days with a taper you can begin ibuprofen 600 mg 3 times a day. When you are using the ibuprofen take it with food. You can use acetaminophen, 650-1000 mg up to 4 times a day. Doses should be at least 6 hours apart. I sent a prescription for a few oxycodone that you can use, be cautious about constipation while taking the oxycodone and use this only when the other medications are not effective. As we discussed, activity as tolerated and is important that you get up and move around some. You can apply ice if you find that helpful, keep the eyes from direct skin contact and remove after 10-15 minutes, you can do this multiple times a day. Follow up soon with your primary care provider. If you develop problems with bowel or bladder function or fevers recheck in the emergency department. Prescriptions: New methylprednisolone [Medrol (Tejas)] 4 mg tablets,dose pack See Rx Instructions .ROUTE .COMPLEX Qty: 21 0RF Rx Instructions: orally per package directions oxycodone 5 mg tablet 5 mg PO Q6H PRN (Reason: pain) Qty: 20 0RF No Action fluticasone propionate 50 mcg/actuation spray,suspension 2 spray NASAL DAILY multivitamin [Multiple Vitamins] 1 EACH tablet Qty: 0 sildenafil [Viagra] 100 mg tablet 100 mg PO DAILY PRN (Reason: sexual activity) Qty: 30 2RF Rx Instructions: administer 30 minutes to 4 hours before activity pravastatin 40 mg tablet 40 mg PO ONCE PM Qty: 30 5RF testosterone cypionate 200 mg/mL oil 100 mg IM QWEEK Qty: 10 1RF dextroamphetamine-amphetamine [Adderall XR] 20 mg capsule,extended release 24hr 20 mg PO DAILY Qty: 30 0RF Rx Instructions: refill 3 fexofenadine 60 mg tablet 60 mg PO Q12HP PRN (Reason: Seasonal allergies) Qty: 90 1RF albuterol sulfate 90 mcg/actuation aerosol powdr breath activated 2 inh INHALATION Q4H PRN (Reason: shortness of breath or wheezing) Qty: 1 5RF fluticasone propion-salmeterol [Advair Diskus] 250-50 mcg/dose blister with device 1 inh inhalation BID Qty: 60 5RF Referrals: Driss Wang DO [Primary Care Provider, Family Practice] Stand Alone Forms: Patient Portal/API
[2025-07-24] MEDS: ACETAMINOPHEN IV 1,000 MG/100 ML VIAL 400 MG IV (12:22)
[2025-07-24] MEDS: ONDANSETRON 4 MG/2 ML INJ IV (12:46)
[2025-07-24 13:14] VITALS: PULSE 79; O2SAT 95
[2025-07-24 13:15] VITALS: BP 134/83; PULSE 81; RESP 20; O2SAT 95
[2025-07-24 13:25] LABS: Add Manual Diff / Slide Review NO; Hematocrit 44.5 % (41-53); Hemoglobin 15.0 g/dL (13.5-17.5); Lymphocytes Absolute Auto 2000 /uL (1100-4500); Mean Corpuscular HGB Conc 33.8 % (30-36); Mean Corpuscular Hemoglobin 30.2 PG (26-34); Mean Corpuscular Volume 89.4 fL (80-100); Platelet Count 247 X10^3/uL (150-400)
[2025-07-24 13:30] VITALS: PULSE 80; O2SAT 95
[2025-07-24 14:00] VITALS: PULSE 79; O2SAT 93
[2025-07-24 14:30] VITALS: BP 142/80; PULSE 81; O2SAT 96
== END 2025-07-24 14:42 | disposition home or self-care (01) ==
PROVIDERS: Emergency Provider Emergency Medicine; PCP Family Medicine
DX: M54.42 Lumbago with sciatica, left side (principal)
CPT/HCPCS: 85025; 85651; 86140; 96365; 96372; 96375; 99284; J0131; J1885; J2405

== ENCOUNTER → 2025-07-29 15:42 | Outpatient (CLI) | payer OTHER, SELFPAY ==
--- NOTE | 2025-07-29 15:43 | DI.RAD.S_ITS ---
PROCEDURE: XR HIP W PEL IF DONE LT 2V INDICATIONS: 06/18 pain to back/left hip TECHNIQUE: AP pelvis with lateral view(s) of the left hip(s). COMPARISON: [facility], , XR LUMBAR SPINE 2-3V, 07/29/2025, 15:42. FINDINGS: Bones: No fractures or dislocations. Pelvic ring appears intact. No suspicious bony lesions. There is mild superior joint space narrowing seen of both hips, with associated remodeling changes with subchondral sclerosis and osteophyte formation. Age-appropriate lower lumbar spine degenerative changes are noted. Soft tissues: The visualized bowel gas pattern is normal. No suspicious soft tissue calcifications. IMPRESSION: Mild bilateral hip degenerative change can be seen. Dictated by: Daniel Mejia M.D. on 07/29/2025 at 15:08 Approved by: Daniel Mejia M.D. on 07/29/2025 at 15:09
--- NOTE | 2025-07-29 15:43 | DI.RAD.S_ITS ---
PROCEDURE: XR LUMBAR SPINE 2-3V INDICATIONS: severe pain to left side above hip/flank x1 week TECHNIQUE: 3 views of the lumbar spine were acquired. COMPARISON: [facility], CR, XR HIP W PEL LT 2V, 07/29/2025, 15:42. FINDINGS: Bones: 5 [id number] vertebrae are present. There is normal bony alignment. No vertebral body compression fractures. No suspicious bony lesions. There is [id number] disc space narrowing at L4-L5, with at least moderate disc space narrowing at L5-S1. Lower lumbar spine facet arthropathy is seen. Soft tissues: Overlying bowel gas pattern is normal. No suspicious soft tissue calcifications. IMPRESSION: Focal lower lumbar spine degenerative changes are seen by plain film which are worst at the L5-S1 level. If it would be helpful for clinical management decision making, please consider a dedicated, scheduled lumbar spine MRI for further evaluation (assuming that there is no contraindication). Dictated by: Daniel Mejia M.D. on 07/29/2025 at 15:05 Approved by: Daniel Mejia M.D. on 07/29/2025 at 15:06
== END ==
PROVIDERS: PCP Family Medicine; Referring Provider Physician Assistant; Visit Provider Physician Assistant
DX: M47.26 Other spondylosis with radiculopathy, lumbar region (principal); M48.061 Spinal stenosis, lumbar region without neurogenic claudication; M48.07 Spinal stenosis, lumbosacral region
CPT/HCPCS: 72100; 73502